=== PATIENT | male | born 1975 | race African-American/Black ===

== ENCOUNTER 2017-06-11 04:12 | Observation (INO) ==
[2017-06-11] MEDS ORDERED: LABETALOL IV ONE ×2 (05:05→05:47)
[2017-06-11] MEDS ORDERED: APRESOLINE IV ONE ×2 (05:05→05:47)
[2017-06-11] MEDS ORDERED: NITROGLYCERIN TOP ONE (05:05)
[2017-06-11 05:22] LABS: MANUAL DIFF NEEDED? NO
[2017-06-11 05:24] LABS: BASO% 0.9 % (0.0-0.8); EOS# 0.14 X1000 (0.0-0.7); EOS% 2.4 % (0.0-10.0); HEMATOCRIT 47.3 % (42.0-52.0); HEMOGLOBIN 16.2 g/dL (14.0-18.0); LYMPH# 1.88 X1000 (1.2-3.4); LYMPH% 32.9 % (20.5-51.1); MCH 32.4 PG (27-31); MCHC 34.2 g/dL (33-37); MCV 94.6 FL (81-99); MONO# 0.76 X1000 (0.11-0.59); MONO% 13.3 % (1.7-9.3); MPV 12.7 FL (7.4-10.4); NEUT% 50.5 % (42.2-75.2); PLT 147 X1000 (130-400)
--- NOTE | 2017-06-11 05:27 | PROVIDER DOCUMENTATION ---
HPI-General Adult - General Chief Complaint: Shortness of Breath Stated Complaint: SOB Time Seen by Provider: 06/11/17 04:59 Source: patient Allergies/Adverse Reactions: Patient Allergies Allergy/AdvReac Type Severity Reaction Status Date / Time No Known Allergies Allergy Verified 08/25/14 02:44 Home Medications: Home Medication List Medication Instructions Recorded Confirmed Last Taken Type NK [No Home Medications] 06/11/17 06/11/17 Unknown History - History of Present Illness -Gen Adult Location of Pain/Injury: reports: none Pain Radiation: reports: no radiation Quality of Pain: reports: none Onset/Duration: reports: 2 days ago Timing: reports: still present, getting worse Context/Activities at Onset: reports: rest Modifying Factors: improves with: exercise, lying down Associated Symptoms: reports: shortness of breath Similar Symptoms Previously?: Yes Recently seen or treated by another doctor?: No - Sickle Cell Pain Related Context Sickle Cell Pain Location: reports: none Is this pain typical of prior episodes of crisis?: No Review of Systems - Adult - REVIEW OF SYSTEMS - ADULT Constitutional: reports: no symptoms reported Eyes: reports: no symptoms reported Ears, Nose, Mouth & Throat: reports: no symptoms reported Cardiovascular: reports: other (TIGHTNESS) Respiratory: reports: dyspnea on exertion, shortness of breath, other (ORTHOPNEA ) Gastrointestinal: reports: no symptoms reported Genitourinary: reports: no symptoms reported Musculoskeletal: reports: no symptoms reported Integumentary: reports: no symptoms reported Neurological: reports: no symptoms reported Psychiatric: reports: no symptoms reported Endocrine: reports: no symptoms reported Hematologic/Lymphatic: reports: no symptoms reported Allergic/Immunologic: reports: no symptoms reported All Other Systems: Reviewed and Negative Past History - Adult - PAST MEDICAL HISTORY-ADULT Review of Records: reports: Old Records Reviewed, Nursing Assessment Review, Medications Reviewed, Social history reviewed & non-contributory. Major Childhood Illnesses: reports: denies history Cardiovascular: reports: CHF, HTN (BUT HAS BEEN OUT OF MEDS FOR WEEKS) Respiratory: reports: other (smoker) Gastrointestinal: reports: denies history Obstetrical/Gynecological: reports: denies history Genitourinary: reports: denies history Musculoskeletal: reports: arthritis Neurological: reports: denies history Psychiatric: reports: denies history Endocrine/Immune: reports: denies history Other Conditions: reports: denies history - IMMUNIZATION STATUS Childhood Immunizations: See Nurse Assessment Flu Vaccine: See Nurse Assessment - FAMILY HISTORY Family History: reviewed, not pertinent Physical Exam-General - PHYSICAL EXAM-ADULT Initial Vital Signs Reviewed: Yes - CONSTITUTIONAL General Appearance: alert, mild distress - EYES Eyes: PERRL/EOMI, pink conjunctivae - HEAD, EARS, NOSE, MOUTH & THROAT HENMT: normocephalic/atraumatic, moist mucous membranes, normal ENT inspection, TMs normal, pharynx normal - NECK Neck: non-tender, full range of motion, supple - RESPIRATORY Respiratory: chest non-tender, crackles (BASILAR BILATERALLY) - CARDIOVASCULAR Cardiovascular: regular rate, rhythm, no edema, no gallop, no JVD, no murmur - GASTROINTESTINAL (ABDOMEN) Abdominal Exam: normal bowel sounds, non tender, soft - LYMPHATIC Lymphatic: no adenopathy - MUSCULOSKELETAL Back Exam: no CVA tenderness, no vertebral tenderness Extremity: normal range of motion, non-tender, normal gait, normal inspection Peripheral Pulses: radial (R): 4+, radial (L): 4+ - SKIN Integumentary: normal color, normal turgor, warm/dry - NEUROLOGIC Neurologic: grossly normal, no motor/sensory deficits - PSYCHIATRIC Psych/Mental Status: normal mood/affect, normal thought content, normal thought process, oriented x 3 Progress - PLAN OF CARE/RESULTS Progress/Plan/Lab Results: Vital Signs - 8 hr 06/11/17 04:30 Temperature 98.5 F Pulse Rate 103 H Respiratory Rate 20 Blood Pressure 192/115 O2 Sat by Pulse Oximetry 94 L Orders Category Date Time Status CHEST-2 VIEWS [RAD] Stat Exams 06/11/17 05:07 Ordered CBC WITH DIFF [HEME] Stat Lab 06/11/17 04:30 Results CK PROFILE [SP CHEM] Stat Lab 06/11/17 04:30 Received COMPREHENSIVE METABOLIC PANEL [CHEM] Stat Lab 06/11/17 04:30 Received TROPONIN T Stat Lab 06/11/17 04:30 Received bnp [PRO B-NATRIURETIC PEPTIDE] Stat Lab 06/11/17 04:30 Received Hydralazine [Apresoline] Med 06/11/17 05:05 Discontinued 10 mg IV NOW ONE Labetalol Med 06/11/17 05:05 Discontinued 20 mg IV NOW ONE Nitroglycerin Med 06/11/17 05:05 Discontinued 1 inch TOP NOW ONE EKG [EKG] Stat Ther 06/11/17 05:07 Ordered Result Diagrams: 06/11/17 04:30 06/11/17 04:30 - REASSESSMENT Reassessment #1 Time Reassessed: 08:07 Status: improving (Took over pt's care at 6AM, pt vomited X1. After IV Zofran, N /V resolved adn he feels a lot better.) Reassessment #2 Time Reassessed: 08:17 Status: worsening (Reports sharp chest pain started at the center of his chest.) - EKG 1 Time of EKG reading by physician:: 06:02 EKG Read and Signed by:: Eliazar Ye EKG Interpretation (*Must complete 3 of following elements*): Abnormal Rate: 97 Rhythm: NSR Ambrose: left QRS: poor R wave progression WA Interval: normal Prior EKG Comparison: unchanged from prior - CONSULTS/PCP/HOSPITALIST Notification #1 *Consult/PCP/Hospitalist*: Dr. Hatch Time Discussed: 08:30 Consult Disposition: Will see in ED, Admit Departure - Departure Date of Disposition Decision: 06/11/17 Time of Disposition Decision: 08:08 DIAGNOSIS: Hypertensive urgency, CHF (congestive heart failure) Disposition: ADMITTED INPATIENT 09 Certified Medical Emergency: Emergent Condition: Stable Additional Freetext Instructions: Follow up with regular MD in 2-3 days. Return to ER if your symptoms worsen. ED Follow Up Instructions: You have been treated by a care provider in the Emergency Department. These instructions are being provided to you so you can have an understanding of how to care for yourself upon discharge. Upon discharge from the Emergency Department, you are responsible for making arrangements for follow-up care by a physician of your choice. Take all prescribed medications as directed. Return to the Emergency Department immediately for any new or worsening symptoms. You may call the Physician Referral phone number at [phone] to obtain a list of Physicians who are taking new patients. Referrals and Follow-Ups: None,PCP [Primary Care Provider] - - Critical Care Note This patient required my direct & personal management of CC.: No Attestation - Physician/ BRANDT Attestation Patient care was provided by Advanced Practice Provider:: No The physician spent face to face time with patient:: Yes Advanced Practice Provider documentation review:: Supervising physician onsite and consulted in the evaluation and care of this patient. The physician did have a face to face encounter with the patient.
[2017-06-11 05:46] LABS: AGAP 12; ALBUMIN 4.4 g/dL (3.5-5.0); ALKALINE PHOSPHATASE 75 U/L (32-122); BUN 12 mg/dL (8-22); CALCIUM 8.9 mg/dL (8.8-10.2); CHLORIDE 103 mmol/L (98-107); COSMO 277; GOT 40 U/L (10-34); GPT 40 U/L (10-44); POTASSIUM 3.4 mmol/L (3.5-5.1); SODIUM 139 mmol/L (136-145); TCO2 25 mmol/L (25-35); TOTAL PROTEIN 7.9 g/dL (6.3-8.3)
--- NOTE | 2017-06-11 05:59 | EKG Report ---
Test Performed on : 06/11/2017 05:55:59 AM Test Reason : pain Blood Pressure : / mmHG Vent. Rate : 097 BPM Atrial Rate : 097 BPM P-R Int : 190 ms QRS Dur : 094 ms QT Int : 414 ms P-R-T Axes : 069 -70 042 degrees QTc Int : 525 ms Normal sinus rhythm. Biatrial enlargement Left axis deviation Possible Anterior infarct , age undetermined Abnormal ECG When compared with ECG of 14-MAR-2016 04:32, Nonspecific T wave abnormality now evident in Lateral leads Unconfirmed Result
[2017-06-11 06:08] LABS: CK INDEX 0.8 (0.0-2.5); CK-MB 3.79 ng/mL (0.0-5.0)
[2017-06-11] MEDS ORDERED: ZOFRAN ONE (06:31)
[2017-06-11] MEDS ORDERED: ZOFRAN IV ONE (06:46)
--- NOTE | 2017-06-11 07:19 | Diag Imaging Result Doc PS360 ---
EXAM: CHEST-2 VIEWS - 06/11/2017 HISTORY: SOB TECHNIQUE: Chest two views COMPARISON: 03/14/2016 FINDINGS: Heart size appears borderline enlarged and stable. There is slight prominence of basilar interstitial markings but these are less prominent compared to the previous exam. There is no consolidation, substantial pleural effusion, or pneumothorax identified. There is thoracic spondylosis noted. IMPRESSION: Stable borderline cardiomegaly. Nonspecific slight prominence of basilar interstitial markings. Electronically signed by Tyrese Squires 06/11/2017 7:17 AM
[2017-06-11 08:00] LABS: CK INDEX 0.8 (0.0-2.5); CK-MB 3.37 ng/mL (0.0-5.0)
[2017-06-11] MEDS ORDERED: LASIX IV ONE (10:11)
[2017-06-11] MEDS: LIBRIUM PO SCH ×3 (11:37→23:28)
[2017-06-11] MEDS: VITAMIN B-1 PO SCH (11:38)
[2017-06-11] MEDS: FOLIC ACID PO SCH (11:38)
[2017-06-11] MEDS: APRESOLINE PO SCH ×2 (14:32→17:52)
--- NOTE | 2017-06-11 15:35 | HISTORY AND PHYSICAL ---
CHIEF COMPLAINT: Chest pain, shortness of breath. HISTORY OF PRESENT ILLNESS: This is a 42-year-old, gentleman, with a history of hypertension, chronic congestive heart failure and coronary artery disease, who presented to the emergency room complaining of shortness of breath and dyspnea. He does state that this started about 2 weeks ago, and it has progressed throughout. He is noncompliant with his medications, taking Lasix only p.r.n. if he is short of breath or if his legs "swell too much ". He does not monitor his weight, sodium intake or fluid status. He does state that his abdomen is larger than normal. He does report some mild pressure type chest discomfort 2-3/10 that is present during times of shortness of breath, which subsides with resolution of shortness of breath. He denies orthopnea, but he has had multiple episodes of PND, it sounds like over the last 6 months or so. Chest x-ray, revealed stable borderline cardiomegaly, with findings consistent with congestive heart failure. ProBNP is 680, with him running 300 to 900 over the last 2 years. Troponins were negative on 3 occasions. CPK was 471, it did drop to 403, with electrolytes showing a potassium of 3.4. AST is slightly elevated. He was noted to be hypertensive on arrival to the emergency room, having blood pressures of 192/115, for which he was given a total of 20 mg of hydralazine IV, 40 mg of labetalol IV, and an inch of nitroglycerin paste. Blood pressure has decreased into the 140's to 150 's/70's to 80's. PAST MEDICAL HISTORY: Hypertension, chronic congestive heart failure, high cholesterol, COPD/asthma, and noncompliance with medications. PAST SURGICAL HISTORY: Denies. SOCIAL HISTORY: Denies any tobacco use. He does use occasional marijuana, and he does drink a 1 to 2 pints daily, with his last drink being 2 pints last night before bedtime. ALLERGIES: No known drug allergies. HOME MEDICATIONS: The patient takes Lasix 40 mg p.r.n. REVIEW OF SYSTEMS: A 14-point review of systems is discussed with the patient, with pertinent positives being stated in the HPI. He denies palpitations, dizziness, syncope, nausea, vomiting, diarrhea, constipation, any black or bloody vomitus, black or bloody stools, hematuria, dysuria, frequency, urgency. PHYSICAL EXAMINATION: GENERAL: This is a 42-year-old, gentleman, who is sitting up in the bed, in no distress. VITAL SIGNS: Blood pressure is 156/99, with a heart rate of 100, respirations are 20, temperature is 97.8 degrees oral, with room air saturations of 94% to 99%. HEENT: Head is normocephalic, atraumatic. Pupils equal, round, react to light. EOMS are intact. Sclerae anicteric. Mucous membranes are moist. NECK: Supple. Trachea midline. CARDIOVASCULAR: Regular rate and rhythm.S3 gallop appreciated. PULMONARY: Breath sounds with crackles noted in the bases. Bilateral chest does rise and fall symmetrically with respiration. ABDOMEN: Soft, mildly distended, nontender, with bowel sounds in all 4 quadrants. EXTREMITIES: No clubbing or cyanosis. He does have pretibial edema. NEUROLOGIC: He is alert and oriented x3. DIAGNOSTICS: WBC is 5.7, with hemoglobin 16.2, hematocrit 47.3, and platelets of 147,000. Sodium is 139, potassium 3.4, BUN 12, creatinine 1, with a glucose of 94. AST 40. CPK is 471 & 403, with troponins negative x3, and a proBNP of 680. Chest x-ray was consistent with cardiomegaly. EKG revealed sinus rhythm with biatrial enlargement, left axis deviation, with nonspecific T-wave abnormalities. ASSESSMENT AND PLAN: 1. Hypertensive urgency. Hydralazine 25 mg tid, add medications as BP allows 2. Congestive heart failure exacerbation. Lasix 40mg IV now, then 40mg po daily Strict I&O, daily weights. Consult cardiology. 3. Coronary artery disease with a 50% left anterior descending noted in April 2015. 4. Alcohol abuse. 1 1/2 - 2 pints per day, the last being 2 pints last night Librium taper Monitor for alcohol withdrawal / DTs Folic acid, Thiamine orally 5. Chronic obstructive pulmonary disease/asthma. 6. Hypokalemia replete and trend labs PLAN: The patient will be admitted to the hospital. He will be placed on telemetry. Dictated by LYSSA Minor for Nahid Hatch MD cc: Nilam LYSSA Martinez MD [facility]
--- NOTE | 2017-06-11 16:56 | ECHO REPORT ---
ORDER DATE: 06/11/2017 ECHOCARDIOGRAPHIC MEASUREMENTS: 1. Interventricular septum 1.2. 2. Left ventricular posterior wall 1.2. 3. Diastolic diameter 5.9. 4. Left atrium 3.5-3.1. SUMMARY OF 2-DIMENSIONAL IMAGIN. Aortic valve leaflets were trileaflet. Mitral valve was normal. Tricuspid valve was normal. Pulmonic valve was normal. 2. Left ventricle was mildly dilated with an estimated ejection fraction of 30-35%. 3. There is global hypokinesis. 4. There is mild mitral regurgitation. Mild tricuspid regurgitation. Peak velocity across the tricuspid valve was 2.4 m/sec. 5. There is no aortic stenosis or regurgitation. 6. There is no pericardial effusion or obvious intracardiac mass or thrombus seen. cc: MD Nilam Amador CRNP
--- NOTE | 2017-06-11 19:11 | HISTORY AND PHYSICAL ---
SUPERVISORY NOTE: The patient was seen and examined. Discussed with and plan devised with nurse practitioner. Patient notes that he has not really been taking his blood pressure medications at home as he has been out of them. He notes he started to feel more tired, fatigued, more chest heaviness and therefore he came to the emergency department. PHYSICAL EXAMINATION: VITAL SIGNS: Reviewed. He is awake, alert, oriented. Sitting on the side of the bed. He is in no current respiratory distress. Pleasant to talk with. NECK: Supple. CV: Regular rate. ASSESSMENT: Hypertensive urgency. PLAN: Discussed with the patient the perils of not controlling his blood pressure. Discussed with him that the longer he stays uncontrolled the harder it will be to get control. We will continue to follow. The patient states he is aware. cc: Nahid Hatch MD
--- NOTE | 2017-06-11 19:33 | CONSULTATION ---
DATE OF CONSULTATION: 06/11/2017 IMPRESSION: 1. Acute on chronic systolic heart failure in setting of medical noncompliance. 2. Hypertensive cardiomyopathy. Previous left ventricular ejection fraction approximately 40%. 3. Atherosclerotic coronary disease. Patient has history of 50% left anterior descending stenosis managed medically. This was demonstrated on coronary angiography April 2015. Patient continues without angina. 4. Hypertension. 5. Hyperlipidemia. 6. Chronic obstructive pulmonary disease. 7. Chronic alcohol use. RECOMMENDATIONS: 1. Resume patient's previous cardiovascular medications including lisinopril, hydralazine, Lasix and labetalol. 2. Resume atorvastatin. 3. Repeat echocardiography. 4. Abstinence from alcohol use recommended. 5. Compliance with medications and medical followup also recommended. 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 He has been out of his cardiovascular medications for some time. 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 Vail in some time as well. He relates getting shortness of breath around 3 a.m. with some chest tightness that prompted him to come to the emergency room. He was found to have some indications of acute on chronic systolic heart failure. He has been diuresed with IV Lasix and has improved rapidly. He is presently without dyspnea on room air lying flat. PAST MEDICAL HISTORY: 1. Hypertensive cardiomyopathy with left ventricular ejection fraction of 40% by previous echocardiography. 2. Moderate coronary atherosclerosis with 50% LAD stenosis by coronary angiography in 2014. 3. Hypertension. 4. Hyperlipidemia. 5. COPD. 6. Obesity. 7. Previous medical noncompliance in the past. PAST SURGICAL HISTORY: None. ALLERGIES: No known drug allergies. MEDICATIONS: Prior to admission as listed. It is noteworthy that he has run out of medications for some time. SOCIAL HISTORY: He no longer smokes. He drinks 1-2 mixed drinks daily. He is currently employed at the [employer]. FAMILY HISTORY: Is negative for premature coronary disease. REVIEW OF SYSTEMS: Pulmonary noteworthy for dyspnea and orthopnea on presentation. Gastrointestinal: Negative. Constitutional: Negative beyond history of present illness. Remainder review of systems negative/noncontributory beyond history of present illness with 14 total systems reviewed. PHYSICAL EXAMINATION: General: Reveals an obese, adult -[place] male in no distress. Vital signs: Blood pressure 147/92, heart rate 90 and regular, oxygen saturation 100% on room air. HEENT: Extraocular movements intact. Mucous membranes are moist. Neck: Supple without jugular venous distention. There are no carotid bruits. Chest: Clear to auscultation. Cardiac Exam: Reveals a regular rate and rhythm without appreciable murmur or gallop. Abdomen: Soft, nontender. Bowel sounds are normal. Extremities: Without edema. Neurologic exam reveals him to be alert and fully oriented. Speech is fluent. He moves all 4 extremities equally well. Skin is warm and dry. Psychiatric exam reveals mood to be appropriate. DIAGNOSTICS: The ECG demonstrates sinus rhythm, left atrial abnormality, left axis deviation and delayed precordial R-wave progression, cannot exclude previous anterior infarct of undetermined age. LABORATORY DATA: Remarkable for troponin T less than 0.01. B-type natriuretic peptide level 680. BUN 12, creatinine 1.0. cc: Mahendra Evans MD
[2017-06-11] MEDS ORDERED: HYDROXYZINE PO ONE (22:54)
[2017-06-12] MEDS: LIBRIUM PO SCH ×2 (04:40→12:13)
[2017-06-12] MEDS ORDERED: LASIX PO SCH (09:00)
[2017-06-12] MEDS ORDERED: ENTRESTO 24 MG-26 MG TABLET PO SCH (09:00)
[2017-06-12] MEDS ORDERED: PRINIVIL PO SCH (09:00)
[2017-06-12] MEDS: APRESOLINE PO SCH ×2 (09:38→12:13)
[2017-06-12] MEDS: VITAMIN B-1 PO SCH (09:38)
[2017-06-12] MEDS: FOLIC ACID PO SCH (09:38)
[2017-06-12 11:36] VITALS: BP 168/91
--- NOTE | 2017-06-13 08:47 | DISCHARGE SUMMARY ---
ADMISSION DATE: 06/11/2017 DISCHARGE DATE: 06/12/2017 DIAGNOSES: 1. Hypertensive urgency. 2. Congestive heart failure exacerbation. 3. Coronary artery disease with a 50% left anterior descending noted 04/2015. 4. Chronic obstructive pulmonary disease/asthma. 5. Hypokalemia, resolved. 6. Alcohol abuse and use. DIAGNOSTICS: On 06/11/2017, chest x-ray revealed stable borderline cardiomegaly, nonspecific, slight prominence of basilar interstitial markings. On 06/11/2017, echocardiogram revealed trileaflet aortic valve, mitral valve normal, tricuspid valve normal, pulmonic valve normal, left ventricle mildly dilated with an estimated EF of 30% to 35%, global hypokinesis, mild mitral and tricuspid regurgitation, no aortic stenosis or regurgitation, no pericardial effusion or obvious intracardiac mass or thrombus seen. CONSULTS: Dr. Mahendra Evans, Cardiology. HOSPITAL COURSE: Mr. Garcia presented to the emergency room complaining of chest pain and shortness of breath. He presented with blood pressures in the 190s/110s, for which he was given IV labetalol and hydralazine IV, and then transitioned over to Apresoline and Entresto. Mr. Garcia had previously had regimen with blood pressures in the 140s to 160/80 to 90s. He had no further chest pain, no shortness of breath after admission. He did complain of PND over the last 6 months. He was ruled out with troponins, and EKG revealed sinus rhythm with biatrial enlargement, left axis deviation, with nonspecific T-wave abnormalities. He was diuresed with Lasix 40 IV, and then placed on p.o. Lasix for a negative balance of 800 for the admission. Mr. Garcia had previously been prescribed medications, which he never filled the antihypertensives. He did fill Lasix, and he has been controlling his symptoms taking Lasix 40 mg p.o. as needed, of course feeling better after diuresis. He does drink 1-1/2 to 2 pint of alcohol daily, with his last being the night before admission. We did place him on a Librium taper and watched for any signs of alcohol withdrawal or DTs, which there were none. DISCHARGE PHYSICAL EXAMINATION: Cardiovascular: S1 and S2 are appreciated. He does have a faint S3 gallop. Pulmonary: Breath sounds are clear with no increased work of breathing noted. Gastrointestinal: Abdomen is soft, nontender, nondistended with bowel sounds in all 4 quadrants. Extremities: No clubbing, cyanosis, or edema. Calves nontender, and pulses palpable x4. DISCHARGE MEDICATIONS: 1. Albuterol inhaler 1 puff every 6 hours as needed. 2. Entresto one b.i.d. 3. Hydralazine 25 mg p.o. t.i.d. 4. Lasix 40 mg p.o. daily. FOLLOWUP: Follow up with Dr. Mahendra Evans, Cardiology, in 2 to 3 weeks. He has been instructed to return to the emergency room or call to be seen sooner for any chest pain, shortness of breath, palpitations, dizziness, syncope, recurring PND, orthopnea, or any questions or concerns that he may have. DISPOSITION: He is being discharged home in stable condition with family members. TIME SPENT: This is a greater than 30-minute discharge. Dictated by LYSSA Minor for Nahid Hatch MD cc: LYSSA Minor MD
== END 2017-06-12 15:25 | disposition home or self-care (01) ==
LOC: P.ED 04:12 → INTOOBSV 04:13 → P.MEDSURG 04:13
PROVIDERS: ATTEND Family Medicine